=== PATIENT | female | born 1950 | race Caucasian/White ===

== ENCOUNTER → 2016-10-13 | Outpatient (CLI) | payer OTHER | END | disposition home or self-care (01) | LOC: CFH 10:11 | PROVIDERS: ATTEND Internal Medicine | DX: Z12.31 Encounter for screening mammogram for malignant neoplasm of breast (principal) | CPT/HCPCS: G0202 ==

== ENCOUNTER → 2017-05-10 | Outpatient (CLI) | payer OTHER | END | disposition home or self-care (01) | LOC: CFH 15:18 | PROVIDERS: ATTEND Physician Assistant | DX: M19.011 Primary osteoarthritis, right shoulder (principal); M75.51 Bursitis of right shoulder; M25.561 Pain in right knee; I10 Essential (primary) hypertension; K21.9 Gastro-esophageal reflux disease without esophagitis; E11.9 Type 2 diabetes mellitus without complications ==

== ENCOUNTER → 2017-06-27 | Outpatient (CLI) | payer OTHER ==
[~2017-06-27] MED LIST: ACET1TAB64 PO; ALIS300T PO; ASPI-496 PO; ATOR40TA78 PO; CALC500T51 PO; LACT1CAP40 PO; LISI5TAB7 PO; METH500T97 PO; METO50TA82 PO; OMEP-110 PO; [UNRECOGNIZED DRUG - OTHER] PO
[2017-06-27 10:26] LABS: BLOOD UREA NITROGEN 17 mg/dL (7-18)
[2017-06-27 10:31] LABS: ASPARTATE AMINO TRANSFERASE 10 U/L (15-37)
== END | disposition home or self-care (01) ==
LOC: STAR 09:00
PROVIDERS: ATTEND Orthopaedic Surgery
DX: Z01.818 Encounter for other preprocedural examination (principal); M75.121 Complete rotator cuff tear or rupture of right shoulder, not specified as traumatic; M75.41 Impingement syndrome of right shoulder; M19.011 Primary osteoarthritis, right shoulder
CPT/HCPCS: 36415; 80053; 93005

== ENCOUNTER 2017-07-11 08:53 | Day surgery (SDC) | payer OTHER ==
[~2017-07-11] VITALS: Ht 144.8 cm; Wt 72.7 kg
[~2017-07-11 08:53] MED LIST changes: +BUPIVACAINE/PF 0.25% ONE; +EPINEPHRINE 1 MG/ML, 1ML ONE
[2017-07-11] MEDS ORDERED: BUPIVACAINE/PF 0.25% ONE (09:18)
[2017-07-11] MEDS ORDERED: LACTATED RINGERS 1,000 ML IV SCH (09:19)
[2017-07-11 09:20] VITALS: BP 186/102
[2017-07-11] MEDS ORDERED: MIDAZOLAM 1 MG/ML, 2ML ONE (09:21)
[2017-07-11] MEDS ORDERED: FENTANYL PF 100 MCG/2ML ONE ×2 (09:21→11:53)
[2017-07-11 09:40] VITALS: BP 178/103
[2017-07-11] MEDS ORDERED: CEFAZOLIN 1,000 MG ONE (10:10)
[2017-07-11] MEDS ORDERED: SUCCINYLCHOLINE 20 MG/ML, 10ML ONE (10:10)
[2017-07-11] MEDS ORDERED: DEXAMETHASONE 4 MG/ML, 1ML ONE (10:10)
[2017-07-11] MEDS ORDERED: PROPOFOL 10 MG/ML, 20ML ONE (10:10)
[2017-07-11] MEDS ORDERED: ROCURONIUM 10 MG/ML,10ML ONE (10:10)
[2017-07-11] MEDS ORDERED: ONDANSETRON 2MG/ML, 2ML ONE (10:10)
[2017-07-11] MEDS ORDERED: GLYCOPYRROLATE 0.2MG/1ML, 5ML ONE (10:10)
[2017-07-11] MEDS ORDERED: ACETAMINOPHEN 325 MG TABLET PO PRN (11:00)
[2017-07-11] MEDS ORDERED: ALBUTEROL SULFATE 2.5 MG/3 ML NPPB PRN (11:00)
[2017-07-11] MEDS ORDERED: HYDROmorphone 1 MG/ML, 1ML IV PRN (11:00)
[2017-07-11] MEDS ORDERED: DIAZEPAM 5 MG/ML, 2ML IVPush PRN (11:00)
[2017-07-11] MEDS ORDERED: OXYcodone 5 MG/5 ML ORAL.SOL UDC PO PRN (11:00)
[2017-07-11] MEDS ORDERED: hydrALAzine 20 MG/ML, 1ML IV PRN (11:00)
[2017-07-11] MEDS ORDERED: KETOROLAC 30 MG/1 ML IV PRN (11:00)
[2017-07-11] MEDS ORDERED: PROMETHAZINE 25 MG/ML, 1ML IV PRN (11:00)
[2017-07-11] MEDS ORDERED: ACETAMINOPHEN 650 MG/20.3 ML UDC ONE (11:35)
[2017-07-11] MEDS ORDERED: LABETALOL 5MG/ML, 20ML ONE (11:35)
[2017-07-11] MEDS ORDERED: OXYcodone 5 MG/5 ML ORAL.SOL UDC ONE (11:35)
[2017-07-11] MEDS ORDERED: LABETALOL 5MG/ML, 20ML IV PRN (12:00)
[2017-07-11] MEDS: FENTANYL PF 100 MCG/2ML IV PRN ×3 (12:00→12:30)
[2017-07-11] MEDS ORDERED: ONDANSETRON ODT 4 MG PO PRN (14:00)
[2017-07-11] MEDS ORDERED: ONDANSETRON ODT 4 MG ONE (14:01)
== END 2017-07-11 15:00 ==
LOC: OUT 08:53
PROVIDERS: ATTEND Orthopaedic Surgery
DX: S43.431A Superior glenoid labrum lesion of right shoulder, initial encounter (principal); M75.111 Incomplete rotator cuff tear or rupture of right shoulder, not specified as traumatic; M75.41 Impingement syndrome of right shoulder; M19.011 Primary osteoarthritis, right shoulder; Z79.82 Long term (current) use of aspirin; X58.XXXA Exposure to other specified factors, initial encounter; Y93.89 Activity, other specified; Y92.89 Other specified places as the place of occurrence of the external cause; Y99.8 Other external cause status
CPT/HCPCS: 29822; 29826; 29827; C1713; J0171; J0330; J0690; J1100; J2250; J2405; J2704; J3010; J3490; J7120; Q0162

== ENCOUNTER → 2018-06-13 | Outpatient (CLI) | payer MEDICARE ==
[~2018-06-13] MED LIST changes: -BUPIVACAINE/PF 0.25% ONE; -EPINEPHRINE 1 MG/ML, 1ML ONE
== END | disposition home or self-care (01) ==
LOC: CFH 07:50
PROVIDERS: ATTEND Internal Medicine
DX: M48.02 Spinal stenosis, cervical region (principal); M47.892 Other spondylosis, cervical region; I10 Essential (primary) hypertension; E11.9 Type 2 diabetes mellitus without complications; E78.1 Pure hyperglyceridemia; G43.109 Migraine with aura, not intractable, without status migrainosus; K21.9 Gastro-esophageal reflux disease without esophagitis; M81.0 Age-related osteoporosis without current pathological fracture
CPT/HCPCS: 70551; 72141

== ENCOUNTER 2018-11-05 17:27 | Emergency (ER) | payer MEDICARE ==
[~2018-11-05] VITALS: Ht 144.8 cm; Wt 78.4 kg
--- NOTE | 2018-11-05 17:46 | NUR ---
Pt told to come to ED for obstructing kidney stones. Pt states saw PCP for lower abd pain, increased urinary frequency, and feelings of incomplete emptying. UA was negative and CT showed obstructing stones.
[2018-11-05] MEDS ORDERED: SODIUM CHLORIDE FLUSH 10ML SYR IVF ONE (18:00)
[2018-11-05 18:17] LABS: BASOPHILS # (AUTO) 0.05 x10^3/uL (0-0.1); BASOPHILS % (AUTO) 0 % (0-1); EOSINOPHILS # (AUTO) 0.16 x10^3/uL (0-0.4); EOSINOPHILS % (AUTO) 1 % (1-7); LYMPHOCYTES % (AUTO) 16 % (22-44); MD NO; MEAN CORPUSCULAR HEMOGLOBIN 28.4 pg (27.0-34.8); MEAN CORPUSCULAR HGB CONC 33.5 g/dL (32.4-35.8); MEAN CORPUSCULAR VOLUME 84.7 fL (80-100); MONOCYTES # (AUTO) 0.84 x10^3/uL (0.2-0.8); MONOCYTES % (AUTO) 7 % (2-9); NEUTROPHILS # (AUTO) 8.79 x10^3/uL (1.8-6.8); NEUTROPHILS % (AUTO) 76 % (42-75); PLATELET COUNT 284 x10^3/uL (130-400); RED CELL DISTRIBUTION WIDTH 15.9 % (9.6-15.2)
[2018-11-05 18:27] LABS: ALANINE AMINOTRANSFERASE 24 U/L (12-78); ANION GAP 7 mmol/L (5-15); CALCIUM 9.5 mg/dL (8.5-10.1); CHLORIDE 106 mmol/L (98-107); CREATININE 0.76 mg/dL (0.55-1.02)
[2018-11-05 18:30] LABS: ALKALINE PHOSPHATASE 110 U/L (45-117); BILIRUBIN,TOTAL 0.6 mg/dL (0.2-1.0); TOTAL PROTEIN 7.7 g/dL (6.4-8.2)
[2018-11-05 18:40] LABS: CULTURE INDICATED? YES; MICROSCOPIC AUTO
--- NOTE | 2018-11-05 20:06 | NUR ---
TASK RN: [facility]ARS UNCOMFORTABLE, REPORTS 9/10 L FLANK 'EPISODE' OF PAIN. PT REQUESTING PAIN MEDICATIONS. ERP AWARE. AWAITING ORDER
[2018-11-05] MEDS ORDERED: KETOROLAC 30 MG/1 ML ONE (20:52)
[2018-11-05 20:59] VITALS: BP 182/83
[2018-11-05] MEDS ORDERED: KETOROLAC 30 MG/1 ML IVPush ONE (21:00)
[2018-11-05] MEDS ORDERED: KETOROLAC 30 MG/1 ML IM ONE (21:00)
== END 2018-11-05 21:18 | disposition home or self-care (01) ==
LOC: ED 21:14
DX: N13.2 Hydronephrosis with renal and ureteral calculous obstruction (principal); I10 Essential (primary) hypertension; E11.9 Type 2 diabetes mellitus without complications; Z90.710 Acquired absence of both cervix and uterus
CPT/HCPCS: 36415; 80053; 81001; 85025; 87086; 96372; 99283; J1885

== ENCOUNTER → 2018-11-05 | Outpatient (CLI) | payer MEDICARE | END | disposition home or self-care (01) | LOC: RAD 15:23 | PROVIDERS: ATTEND Nurse Practitioner Primary Care | DX: N13.2 Hydronephrosis with renal and ureteral calculous obstruction (principal); N13.4 Hydroureter; K57.30 Diverticulosis of large intestine without perforation or abscess without bleeding; E78.1 Pure hyperglyceridemia; I10 Essential (primary) hypertension; G43.109 Migraine with aura, not intractable, without status migrainosus; K21.9 Gastro-esophageal reflux disease without esophagitis; G47.33 Obstructive sleep apnea (adult) (pediatric); E11.9 Type 2 diabetes mellitus without complications; M81.0 Age-related osteoporosis without current pathological fracture; Z90.710 Acquired absence of both cervix and uterus | CPT/HCPCS: 74176 ==

== ENCOUNTER 2018-12-04 13:08 | Outpatient (CLI) | payer MEDICARE | END 2018-12-04 23:59 | disposition home or self-care (01) | LOC: CFH 13:08 | PROVIDERS: ATTEND Physician Assistant | DX: N20.1 Calculus of ureter (principal) | CPT/HCPCS: 76770 ==

== ENCOUNTER → 2020-02-03 | Outpatient (CLI) | payer MEDICARE ==
[~2020-02-03] MED LIST changes: +OMNIPAQUE 350 MG/ML, 100ML BOTTLE ONE
[2020-02-03 16:00] LABS: CREATININE 0.93 mg/dL (0.55-1.02)
== END | disposition home or self-care (01) ==
LOC: RAD 14:54
PROVIDERS: ATTEND Internal Medicine
DX: K57.30 Diverticulosis of large intestine without perforation or abscess without bleeding (principal); N20.0 Calculus of kidney; Z90.710 Acquired absence of both cervix and uterus
CPT/HCPCS: 36415; 74177; 82565; Q9967

== ENCOUNTER 2020-02-12 11:39 | Day surgery (SDC) | payer MEDICARE ==
[~2020-02-12] VITALS: Ht 144.8 cm; Wt 68.0 kg
[~2020-02-12 11:39] MED LIST changes: +AMLO5TAB4 PO; +METF500T17 PO; +METH750T2 PO; +METO-95 PO; +OLME40TA12 PO; -OMNIPAQUE 350 MG/ML, 100ML BOTTLE ONE; +melatonin PO; +vitamin C PO
[2020-02-12] MEDS ORDERED: LACTATED RINGERS 1,000 ML IV SCH (11:49)
[2020-02-12] MEDS ORDERED: CHLORHEXIDINE 15 ML UDC MM STA (11:50)
[2020-02-12 12:09] VITALS: BP 139/81
[2020-02-12] MEDS ORDERED: PROPOFOL 10 MG/ML, 20ML ONE (14:58)
[2020-02-12] MEDS ORDERED: SUCCINYLCHOLINE 20 MG/ML, 10ML ONE (14:58)
[2020-02-12] MEDS ORDERED: ROCURONIUM 10 MG/ML,10ML ONE (14:58)
[2020-02-12] MEDS ORDERED: CEFAZOLIN 1,000 MG ONE (14:58)
[2020-02-12] MEDS ORDERED: ONDANSETRON 2MG/ML, 2ML ONE (14:58)
[2020-02-12] MEDS ORDERED: OMNIPAQUE 350 MG/ML, 50 ML BOTTLE IV ONE (15:00)
[2020-02-12] MEDS ORDERED: HYDROmorphone 1 MG/ML, 1ML INJ IV PRN (15:30)
[2020-02-12] MEDS ORDERED: hydrALAzine 20 MG/ML, 1ML IV PRN (15:30)
[2020-02-12] MEDS ORDERED: PROMETHAZINE 25 MG/ML, 1ML IV PRN (15:30)
[2020-02-12] MEDS ORDERED: DIAZEPAM 5 MG/ML, 2ML IV PRN ×2 (15:30)
[2020-02-12] MEDS ORDERED: LABETALOL 5MG/ML, 20ML IV PRN (15:30)
[2020-02-12] MEDS ORDERED: METOCLOPRAMIDE 5 MG/ML, 2ML IV PRN (15:30)
[2020-02-12] MEDS ORDERED: ALBUTEROL SULFATE 2.5 MG/3 ML NPPB PRN (15:30)
[2020-02-12] MEDS ORDERED: KETOROLAC 30 MG/1 ML IV PRN (15:30)
[2020-02-12] MEDS ORDERED: ONDANSETRON 2MG/ML, 2ML IVPush PRN (15:30)
[2020-02-12] MEDS ORDERED: MEPERIDINE/PF 25MG/0.5ML IVPush PRN (15:30)
[2020-02-12] MEDS ORDERED: FENTANYL PF 100 MCG/2ML ONE ×2 (15:55→16:36)
[2020-02-12] MEDS ORDERED: OXYcodone 5 MG/5 ML ORAL.SOL UDC ONE ×2 (15:55→16:19)
[2020-02-12] MEDS: OXYcodone 5 MG/5 ML ORAL.SOL UDC PO PRN ×2 (16:00→16:20)
[2020-02-12] MEDS: FENTANYL PF 100 MCG/2ML IV PRN ×4 (16:10→16:49)
== END 2020-02-12 19:10 | disposition home or self-care (01) ==
LOC: OUT 11:39
PROVIDERS: ATTEND Urology
DX: N20.0 Calculus of kidney (principal); Z11.59 Encounter for screening for other viral diseases; E11.9 Type 2 diabetes mellitus without complications; I10 Essential (primary) hypertension; E78.00 Pure hypercholesterolemia, unspecified; M19.90 Unspecified osteoarthritis, unspecified site; Z79.891 Long term (current) use of opiate analgesic; Z79.899 Other long term (current) drug therapy; Z90.710 Acquired absence of both cervix and uterus; Z98.890 Other specified postprocedural states; Z82.49 Family history of ischemic heart disease and other diseases of the circulatory system
CPT/HCPCS: 36415; 52332; 52351; 74420; 82962; 87635; 93005; C1726; C1758; C1769; C2617; J0330; J0690; J1885; J2250; J2405; J2704; J3010; J7120; Q9967

== ENCOUNTER → 2020-02-20 | Outpatient (CLI) | payer MEDICARE | END | disposition home or self-care (01) | LOC: CFH 10:52 | PROVIDERS: ATTEND Urology | DX: N20.0 Calculus of kidney (principal) | CPT/HCPCS: 74018 ==

== ENCOUNTER → 2020-06-25 | Outpatient (CLI) | payer MEDICARE | END | disposition home or self-care (01) | LOC: CFH 11:16 | PROVIDERS: ATTEND Internal Medicine | DX: Z12.31 Encounter for screening mammogram for malignant neoplasm of breast (principal) | CPT/HCPCS: 77067 ==